=== PATIENT | male | born 1995 | race Caucasian/White ===

== ENCOUNTER 2017-04-26 13:13 | Emergency (ER) | payer OTHER ==
[2017-04-26] MEDS: ADACEL/BOOSTRIX VACCINE (DIPHTH/PERTUSS/ACELL/TETANUS)0.5ML SYR (90715) IM (15:06)
== END 2017-04-26 18:23 | disposition home or self-care (01) ==
LOC: M ED 13:13
DX: S01.01XA Laceration without foreign body of scalp, initial encounter (principal); W18.40XA Slipping, tripping and stumbling without falling, unspecified, initial encounter; Y92.9 Unspecified place or not applicable; Y93.9 Activity, unspecified; Y99.0 Civilian activity done for income or pay; Z79.899 Other long term (current) drug therapy; Z91.010 Allergy to peanuts
CPT/HCPCS: 90715

== ENCOUNTER 2019-03-14 21:20 | Emergency (ER) | payer OTHER ==
[~2019-03-14] VITALS: Ht 177.8 cm; Wt 63.6 kg
[~2019-03-14 21:20] MED LIST: NAPR-885 PO; NASA0.0517; TYLE325T5 PO; ZYRT10CA PO
[2019-03-14] MEDS ORDERED: diphenhydrAMINE INJ 50MG/ML VIAL (J1200) IV ONE (21:45)
[2019-03-14] MEDS ORDERED: dexameTHASONE 20 MG/5 ML VIAL (J1100) IV ONE (21:45)
[2019-03-14] MEDS ORDERED: NS 1,000 ML IV ONE (22:00)
[2019-03-15 00:09] VITALS: BP 105/55
== END 2019-03-15 00:21 | disposition home or self-care (01) ==
LOC: M ED 21:20
DX: R21 Rash and other nonspecific skin eruption (principal); L29.9 Pruritus, unspecified; T78.40XA Allergy, unspecified, initial encounter; X58.XXXA Exposure to other specified factors, initial encounter; Y92.89 Other specified places as the place of occurrence of the external cause; Z91.010 Allergy to peanuts; Z79.899 Other long term (current) drug therapy
CPT/HCPCS: 96361; 96374; 96375; 99284; J1100; J1200

== ENCOUNTER 2023-11-09 13:09 | Emergency (ER) | payer BC, OTHER ==
[~2023-11-09] VITALS: Ht 177.8 cm; Wt 66.6 kg
[2023-11-09 13:42] LABS: BASO % 0.8 % (0.0-1.0); EOS # 0.1 10^3/uL (0.0-0.5); EOS % 2.3 % (0.0-3.0); HEMATOCRIT 42.5 % (42.0-52.0); HEMOGLOBIN 14.9 g/dl (13.5-17.5); LYMPH # 1.6 10^3/uL (1.5-5.0); LYMPH % 39.9 % (24.0-44.0); MEAN CORPUSCULAR HEMOGLOBIN 33.1 pg (27.0-33.0); MEAN CORPUSCULAR HGB CONC 35.1 g/dl (32.0-36.5); MEAN CORPUSCULAR VOLUME 94.4 fl (80.0-96.0); MONO # 0.4 10^3/uL (0.0-0.8); MONO % 10.2 % (2.0-8.0); NEUTROPHILS # 1.8 10^3/uL (1.5-8.5); NEUTROPHILS % 46.8 % (36.0-66.0); PLATELET COUNT, AUTOMATED 239 10^3/uL (150-450); WHITE BLOOD COUNT 3.9 10^3/uL (4.0-10.0)
[2023-11-09 14:15] LABS: BLOOD UREA NITROGEN 13 MG/DL (9-23); CALCIUM LEVEL 9.4 MG/DL (8.5-10.1); CARBON DIOXIDE LEVEL 30 MMOL/L (20-31); CHLORIDE LEVEL 102 MMOL/L (98-107); CK-MB VALUE MASS < 1.0 NG/ML (<3.6); CREATININE FOR GFR 0.81 MG/DL (0.70-1.30); GLOMERULAR FILTRATION RATE > 60.0 (>60); GLUCOSE, FASTING 110 MG/DL (60-100); POTASSIUM SERUM 4.4 MMOL/L (3.5-5.1); SODIUM LEVEL 138 MMOL/L (136-145)
[2023-11-09 14:16] LABS: CPK CREATINE PHOSPHOKINASE 104 U/L (46-171); MB/CK RELATIVE INDEX 0.96 (< OR =4)
[2023-11-09 15:17] LABS: CK-MB VALUE MASS < 1.0 NG/ML (<3.6)
[2023-11-09 15:19] LABS: CPK CREATINE PHOSPHOKINASE 112 U/L (46-171); MB/CK RELATIVE INDEX 0.89 (< OR =4)
[2023-11-09 16:10] VITALS: BP 123/63; TEMP 97.9; O2SAT 97
== END 2023-11-09 16:13 | disposition home or self-care (01) ==
LOC: M ED 13:09
DX: R07.9 Chest pain, unspecified (principal); F10.10 Alcohol abuse, uncomplicated; Z91.010 Allergy to peanuts; Z79.1 Long term (current) use of non-steroidal anti-inflammatories (NSAID); Z79.899 Other long term (current) drug therapy